=== PATIENT | male | born 1995 | race Two or more races ===

== ENCOUNTER 2016-10-19 21:00 | Emergency (ER) | payer BC ==
[2016-10-19 21:22] VITALS: RESP 16; TEMP 98.6
[2016-10-19] MEDS ORDERED: IBUPROFEN 600 MG TAB PO ONE (21:39)
--- NOTE | 2016-10-19 22:42 | EDPHY ---
H & P Stated Complaint: Laceration of R middle finger. HPI/ROS: Chief complaint: Right middle finger laceration History of present illness: This is a 21-year-old male who presents to the emergency department for a right middle finger laceration. Patient was using food slicer just prior to arrival when it sliced the very tip of his right middle finger. There has been pain. There has been bleeding which is controlled with application of a dressing. He denies paresthesias. He denies abnormal coolness. He can still move his finger well. He does believe he has had a tetanus shot within the last 10 years. - Personal History Current Tetanus/Diphtheria Vaccine: Unsure Current Tetanus Diphtheria and Acellular Pertussis (TDAP): Unsure - Medical/Surgical History Hx Asthma: No Hx Chronic Respiratory Disease: No Hx Diabetes: No Hx Cardiac Disease: Yes Hx Renal Disease: No Hx Cirrhosis: No Hx Alcoholism: No Hx HIV/AIDS: No Hx Splenectomy or Spleen Trauma: No Other PMH: ADD, ?[place] as child. - Social History Smoking Status: Current some day smoker - Physical Exam Exam: General: Alert, nontoxic Skin: Shows amputation of the very distal tip of the finger that only involves the pad. No repairable lesions. Musculoskeletal: Patient can flex and extend his finger well in the DIPJ, PIP and MCP joint. Vascular: Brisk bleeding from the wound, capillary refill brisk in the distal finger. Neurologic: Sensation intact in the distal finger using light touch and two- point discrimination Constitutional: Initial Vital Signs Temperature (C) 37.0 C 10/19/16 21:17 Heart Rate 63 10/19/16 21:17 Respiratory Rate 16 10/19/16 21:17 Blood Pressure 111/69 10/19/16 21:17 O2 Sat (%) 99 10/19/16 21:17 O2 Delivery Mode Room Air Allergies/Adverse Reactions: Penicillins Allergy (Severe, Verified 10/19/16 21:22) Hives Home Medications: Medication Instructions Recorded Concerta 10/19/16 Medical Decision Making ED Course/Re-evaluation: Patient seen under the supervision of my secondary supervising physician Dr. Shadia Vyas. Patient presents to the emergency department after amputating a very small amount of tissue off the tip of his right middle finger. His finger is neurovascularly intact. He has good musculoskeletal control. This is a non repairable lesion. His tetanus is up-to-date. The wound is cleaned and dressed. Patient is discharged home. Home care is discussed. He is referred to a hand doctor for recheck. Return precautions are given. Patient voiced understanding and agreement with plan. - Data Points Medications Given: Discontinued Medications Ibuprofen (Motrin) 600 mg PO EDNOW ONE Stop: 10/19/16 21:40 Last Admin: 10/19/16 21:42 Dose: 600 mg Departure - Departure Disposition: Home, Routine, Self-Care Clinical Impression: Finger amputation, no complication Qualifiers: Encounter type: initial encounter Qualified Code(s): S68.119A - Complete traumatic metacarpophalangeal amputation of unspecified finger, initial encounter Condition: Good Instructions: Acute Wounds (ED) Additional Instructions: Follow-up with a hand doctor for recheck next week If symptoms worsen or new symptoms develop return to the emergency room for recheck Referrals: ALON IQBAL [Primary Care Provider] - As per Instructions Charles Lovelace MD [Medical Doctor] - As per Instructions
[2016-10-19 23:01] VITALS: BP 118/59; PULSE 64; O2SAT 94
== END 2016-10-19 23:00 | disposition home or self-care (01) ==
DX: S68.112A Complete traumatic metacarpophalangeal amputation of right middle finger, initial encounter (principal); F17.200 Nicotine dependence, unspecified, uncomplicated; W27.4XXA Contact with kitchen utensil, initial encounter